=== PATIENT | male | born 1940 | race Caucasian/White ===

== ENCOUNTER → 2020-05-30 | Outpatient (CLI) | payer OTHER ==
[~2020-05-30] MED LIST: ADULT LOW DOSE81 MG PO; FISH OIL500 M1 PO; LIPITOR10 MG PO
== END ==
LOC: SJCVC 10:02
PROVIDERS: ATTEND Internal Medicine Cardiovascular Disease
DX: R94.31 Abnormal electrocardiogram [ECG] [EKG] (principal); I49.1 Atrial premature depolarization; I10 Essential (primary) hypertension; E78.00 Pure hypercholesterolemia, unspecified; R00.2 Palpitations; Z79.899 Other long term (current) drug therapy; Z82.49 Family history of ischemic heart disease and other diseases of the circulatory system

== ENCOUNTER → 2020-05-30 | Outpatient (CLI) | payer OTHER | LOC: CAT 11:16 | PROVIDERS: ATTEND Internal Medicine Cardiovascular Disease | DX: Z13.6 Encounter for screening for cardiovascular disorders (principal); I25.10 Atherosclerotic heart disease of native coronary artery without angina pectoris; E78.00 Pure hypercholesterolemia, unspecified ==

== ENCOUNTER → 2020-06-10 | Outpatient (CLI) | payer OTHER | LOC: SJCVCIMAG 07:45 | PROVIDERS: ATTEND Internal Medicine Cardiovascular Disease | DX: I65.23 Occlusion and stenosis of bilateral carotid arteries (principal); I08.8 Other rheumatic multiple valve diseases; Z79.82 Long term (current) use of aspirin; Z79.899 Other long term (current) drug therapy ==

== ENCOUNTER 2020-06-24 06:30 | Observation (INO) | payer OTHER ==
[~2020-06-24] VITALS: Ht 185.4 cm; Wt 88.0 kg
[2020-06-24] VITALS (11 sets, daily range): BP systolic 117–138; BP diastolic 64–108
[2020-06-24 07:31] LABS: ABSOLUTE NEUTROPHILS 3.7 thou/uL (1.4-8.2); BASOPHILS 0.5 % (0.0-2.0); EOSINOPHILS 1.4 % (0.0-3.0); HEMATOCRIT 44.3 % (42.0-52.0); HEMOGLOBIN 15.4 gm/dL (14.0-18.0); LYMPHOCYTES 23.7 % (24.0-44.0); MCH 32.2 pg (26.0-34.0); MCHC 34.8 g/dL (28.0-37.0); MCV 92.4 fL (80.0-100.0); MONOCYTES 8.2 % (1.0-8.0); PLATELET COUNT 202 thou/uL (150-400); POLYS 66.2 % (36.0-66.0); RBC 4.79 mil/uL (4.50-6.00); WBC 5.6 thou/uL (4.0-11.0)
[2020-06-24 07:36] LABS: CALCIUM 9.3 mg/dL (8.5-10.1); POTASSIUM 3.9 mmol/L (3.5-5.1)
[2020-06-24] MEDS ORDERED: SUPER THERAVIT1 EACH PO (12:16)
[2020-06-24] MEDS ORDERED: VITAMIN C1000 MG PO (12:16)
[2020-06-24] MEDS ORDERED: VITAMIN E400 UNI6 PO (12:17)
[2020-06-24] MEDS ORDERED: EFFIENT10 MG PO (12:24)
--- NOTE | 2020-06-24 18:11 | NUR ---
PT. ARRIVED AT THE FLOOR AROUND NOON; PT. AOX4; C/O PAIN OVER CHEST; "0.2/10"; REFUSED ANY PRN PAIN MEDICATION; EDUCATED ABOUT BED REST UNTIL 1250; ST. UNDERSTANDING; USING THE URINAL; ST. UNDERSTANDING; R. GROIN SIDE SHOWED SOME BRUISING AT ARRIVEL; SOFT; SITE MARKED; AFTER BED REST ABLE TO AMBULATE WITH CARDIAC REHAB; NO C/O PAIN; R. SIDE GROIN SOFT; EDUCATED ABOUT CALLING IF NOTICED INCREASED PAIN OR NOTICE SWELLING AND PAIN; ST. UNDERSTANDING; SA ON THE MONITOR WITH PACs; ADMISSION PERFORMED; POC UPDATED; ASSESSMENT CHARGED; FOLLOWING POC; WILL PASS ON REPORT;
[2020-06-25 04:12] VITALS: BP 114/66
--- NOTE | 2020-06-25 04:31 | NUR ---
pt resting quietly in room, no c/o pain, up adlib in room, r groin site with bruising yet soft, dressing cdi, vss, hopes to go home today, will con't to monitor per ppoc.
[2020-06-25 04:53] LABS: HEMATOCRIT 42.4 % (42.0-52.0); HEMOGLOBIN 14.4 gm/dL (14.0-18.0); MCH 31.6 pg (26.0-34.0); MCHC 33.9 g/dL (28.0-37.0); MCV 93.3 fL (80.0-100.0); RBC 4.55 mil/uL (4.50-6.00); RDW 13.2 % (10.5-14.5)
[2020-06-25 05:02] LABS: ALBUMIN 3.3 g/dL (3.4-5.0); CALCIUM 8.4 mg/dL (8.5-10.1); POTASSIUM 3.9 mmol/L (3.5-5.1); TOTAL BILIRUBIN 1.8 mg/dL (0.2-1.0); TOTAL PROTEIN 6.1 g/dL (6.4-8.2)
[2020-06-25 05:14] LABS: TROPONIN-I 1.53 ng/mL (<0.06)
--- NOTE | 2020-06-25 07:23 | EKG ---
[facility] [place] [address] ELECTROCARDIOGRAM REPORT Name: THAI SORENSON Room #: 205-[facility] M.R.#: [id number] Admission: 06/24/20 Attend Phys: Mitch Kebede MD, Discharge: Date of : 44 Report #: [id number] THIS REPORT FOR: cc: Ethan Lagos MD, Stany A. MD Santiago, Patrick MD LOCATED WITHIN [facility] ~ THIS REPORT FOR: //name// [facility] Test Date: 2020-06-25 Test Time: 07:08:00 Pat Name: THAI SORENSON Department: Room: 205 Gender: M Supervisor [place]: FILIPE : 1940 Requested By: Mitch Kebede Order Number: [id number] MD: Kole Rivera Measurements Intervals Pierce Rate: 71 P: 5 [place]: 151 QRS: -10 QRSD: 101 T: 56 QT: 407 QTc: 443 Interpretive Statements Sinus rhythm Atrial premature complex Compared to ECG 02/15/2002 14:52:50 Atrial premature complex(es) now present Sinus tachycardia no longer present Sinus arrhythmia no longer present Atrial abnormality no longer present Electronically Signed On 06-25-2020 7:23:35 DEGREASER OPERATOR by Kole Rivera [email or web address] <ELECTRONICALLY SIGNED> By: Kole Rivera MD, FACC 06/25/20722 7 7 Kole Rivera MD, LOCATED [facility]IN [facility] /EPI
[2020-06-25] MEDS ORDERED: LIPITOR10 MG PO (07:48)
[2020-06-25 07:53] VITALS: BP 122/70
[2020-06-25 10:55] VITALS: BP 122/70
--- NOTE | 2020-06-25 11:23 | NUR ---
PT AX0 X4; VS STABLE; R GROIN INCISION: CLEAN, DRY, INTACT, NO HEMATOMA, DARK BRUISING SURROUNDING AREA; DENIED ANY PAIN OR DISCOMFORT; ORDERS GIVEN TO DISCHARGE PT HOME TODAY; DISCHARGE ORDERS AND INSTRUCTIONS GIVEN TO PT; PT VERABLIZED UNDERSTANDING; PT LEFT FACILITY ACCOMPANIED BY SON
--- NOTE | 2020-06-25 14:22 | CATHLAB ---
[facility] [place] [address] INVASIVE PROCEDURE REPORT Name: THAI SORENSON Room #: 205-[facility] Jimmy Jimenes#: [id number] Admission: 06/24/20 Attend Phys: Mitch Kebede MD, Discharge: 06/25/20 Date of : 44 Report #: [id number] THIS REPORT FOR: cc: Ethan Lagos MD, Stany A. MD Mancuso, Gerald M. MD [facility] ~ APPROVED REPORT Study performed: 06/24/2020 07:34:05 Patient Details Patient Status: Out-Patient Room #: The patient is a 79 year-old male Event Personnel Mitch Kebede Lime Supervisor, Marce Mejias RN RN, Spring Tran RN RN, Benny Henderson RTR Scrub, Xavier Ferrara RTR Monitor Procedures Performed Art Access - R femoral artery* Left Heart Cath w/or w/o Coronaries [id number] [facility] [address] w/wo Plasty Single LAD 079078 95815 Initial Mod Sed Same Phys/QHP Gr5y 401182 16188 Mod Sed Same Phys/QHP Ea 325125 Hemostasis w/ Mynx Indication Chest pain Procedure Narrative The Right Groin^ was infiltrated with 1% Lidocaine subcutaneous anesthesia. A PINNACLE 6FR Sheath #[id number] sheath was inserted into the RFA^. Coronary angiography was performed using coronary diagnostic catheters. The right coronary system was accessed and visualized with a JR4 catheter. The left coronary system was accessed and visualized with a JL4 catheter. The left ventricle was accessed and visualized with a PIGTAIL catheter. Left ventriculogram was performed in 30 degree projection. An aortogram of the abdominal aorta was performed. Closure device was deployed with a 6 Fr MYNXGRIP 6/7F #[id number]. The patient tolerated the procedure well and there were no complications associated with the procedure. A hematoma occurred. Intraoperative Conscious Sedation Sedation start time: 850 Case end Time: 956 [facility] [address] [place] [address] INVASIVE PROCEDURE REPORT Name: YASTHAI Room #: 205-[facility]#: [id number] Admission: 06/24/20 Attend Phys: Mitch Kebede, Discharge: 06/25/20 Date of : 44 Report #: [id number] Fentanyl 100 mcg Versed 1.5 mg Fluoro Time: 8.90 minutes Dose: DAP 19078.30 cGycm2 2327 mGy Contrast Type and Amount: Omnipaque 190 ml Hemodynamics The aortic pressure is 100/46 mmHg with a mean of 32 mmHg. The left ventricular pressure is 106/-3 mmHg with a mean of mmHg. The left ventricular end diastolic pressure is 11 mmHg. PCI Technique Lesion Percutaneous coronary intervention was performed on the proximal left anterior descending artery segment. A LAUNCHER 6FR EBU 4 #[id number] Guide Catheter was used to engage the ostium. A Luge Wire .014 x 182CM #[id number] Interventional Guidewire was used to cross the lesion. BALLOON DILATION A Balloon catheter Sprinter OTW 2.5 x 15 #[id number] was inserted and inflated up to 6.00atm for 6seconds. Additional Inflation: 12.00atm for 34seconds. Additional Inflation: 14.00atm for 23seconds. STENT DEPLOYMENT A drug-eluting stent RESOLUTE LASHAUN OTW 2.5 X 15 #[id number] was inserted and inflated up to 18.00atm for 41seconds. POST STENT DEPLOYMENT BALLOON DILATION A Balloon catheter TREK NC OTW 2.75 X 12 #[id number] was inserted and inflated up to 20.00atm for 35seconds. Additional Inflation: 20.00atm for 19seconds. Conclusion #1. Successful PTCA stent of the mid LAD eccentric 80% mildly calcified lesion to 0% with a 2.5 x 15 resolute drug-eluting stent NURYS grade III flow this extends around the apex. #2 left main mildly calcified and disease giving rise to LAD and circumflex. #3 circumflex OM nondominant with mild disease. #4 dominant right coronary artery with mild irregularities mid and distally. No occlusive disease giving rise to a small PDA LUIS. Recommendations and plan: Continue aggressive risk factor modification. Dual antiplatelet therapy has been initiated. [facility] [address] [place] [address] INVASIVE PROCEDURE REPORT Name: THAI SORENSON Room #: 205-P [facility] M.R.#: [id number] Admission: 06/24/20 Attend Phys: Mitch Kebede, Discharge: 06/25/20 Date of : 44 Report #: [id number] Hemodynamically stable and pain-free transfer to [facility] to follow post coronary stent protocol. <ELECTRONICALLY SIGNED> By: Mitch Kebede MD, FACC 06/25/201421 21 21 Mitch Kebede MD, FACC /INF
== END 2020-06-25 11:27 | disposition home or self-care (01) ==
LOC: CATH 06:30 → 2N 11:57 → CATH 12:05 → 2N 06-25 11:27
PROVIDERS: ADMIT Internal Medicine Cardiovascular Disease; ATTEND Internal Medicine Cardiovascular Disease
DX: I25.10 Atherosclerotic heart disease of native coronary artery without angina pectoris (principal); I10 Essential (primary) hypertension; E78.5 Hyperlipidemia, unspecified; E78.00 Pure hypercholesterolemia, unspecified; R00.2 Palpitations; Z82.49 Family history of ischemic heart disease and other diseases of the circulatory system

== ENCOUNTER → 2020-08-27 | Outpatient (CLI) | payer OTHER ==
[~2020-08-27] MED LIST changes: +EFFIENT10 MG PO; +SUPER THERAVIT1 EACH PO; +VITAMIN C1000 MG PO; +VITAMIN E400 UNI6 PO
== END ==
LOC: SJCVC 12:04
PROVIDERS: ATTEND Nurse Practitioner Adult Health
DX: I49.8 Other specified cardiac arrhythmias (principal); I25.10 Atherosclerotic heart disease of native coronary artery without angina pectoris; I10 Essential (primary) hypertension; E78.00 Pure hypercholesterolemia, unspecified; Z72.89 Other problems related to lifestyle; Z79.899 Other long term (current) drug therapy; Z79.82 Long term (current) use of aspirin; Z88.8 Allergy status to other drugs, medicaments and biological substances; Z82.49 Family history of ischemic heart disease and other diseases of the circulatory system

== ENCOUNTER → 2020-12-04 | Outpatient (CLI) | payer OTHER | LOC: SJCVCIMAG 09:51 | PROVIDERS: ATTEND Internal Medicine Cardiovascular Disease | DX: I25.10 Atherosclerotic heart disease of native coronary artery without angina pectoris (principal); Z95.5 Presence of coronary angioplasty implant and graft; Z79.82 Long term (current) use of aspirin; Z79.899 Other long term (current) drug therapy ==

== ENCOUNTER → 2021-06-23 | Outpatient (CLI) | payer OTHER | LOC: SJCVC 11:40 | PROVIDERS: ATTEND Internal Medicine Cardiovascular Disease | DX: I25.10 Atherosclerotic heart disease of native coronary artery without angina pectoris (principal); E78.00 Pure hypercholesterolemia, unspecified; I10 Essential (primary) hypertension; F10.20 Alcohol dependence, uncomplicated; Z82.49 Family history of ischemic heart disease and other diseases of the circulatory system; Z98.890 Other specified postprocedural states; Z79.82 Long term (current) use of aspirin; Z79.899 Other long term (current) drug therapy; Z88.8 Allergy status to other drugs, medicaments and biological substances ==